=== PATIENT | male | born 1995 | race African-American/Black ===

== ENCOUNTER → 2022-10-30 | Emergency (ER) | payer MEDICAID ==
[~2022-10-30] VITALS: Ht 172.7 cm; Wt 109.0 kg
[2022-10-30 04:24] LABS: Basophils # (auto) 0.1 10 ^3/uL (0-0.2); Basophils % (auto) 0.6 % (0.0-2.0); Eosinophils # (auto) 0.1 10 ^3/uL (0-0.8); Eosinophils % (auto) 0.9 % (0.0-7.0); Hematocrit 46.4 % (41.0-53.0); Hemoglobin 15.4 g/dL (13.5-17.5); Lymphocytes # (auto) 4.7 10 ^3/uL (0.4-5.4); Mean Corpuscular Hemoglobin 28.6 pg (28.0-32.0); Mean Corpuscular Hgb Conc. 33.2 g/dL (32.0-36.0); Monocytes % (auto) 7.3 % (0.0-12.0); Neutrophils # (auto) 7.5 10 ^3/uL (1.6-8.6); Neutrophils % (auto) 56.2 % (37.0-80.0); Nucleated Red Blood Cells % 0.1 %; Red Cell Distribution Width 13.7 % (11.8-14.3); White Blood Cell 13.4 10^3/uL (4.4-10.8)
[2022-10-30 04:30] VITALS: BP 134/85
[2022-10-30 04:45] LABS: Acetaminophen < 2.0 ug/mL (10-30)
[2022-10-30 04:47] LABS: Albumin 4.1 g/dL (3.4-5.0); Anion Gap 7 (5-15); Blood Alcohol < 3.0 mg/dL (0-5); Blood Urea Nitrogen 10 mg/dL (7-18); Carbon Dioxide 25 mmol/L (21-32); Chloride 108 mmol/L (98-107); Glucose 113 mg/dL (74-106); Sodium 140 mmol/L (136-145)
[2022-10-30 04:49] LABS: Alanine Aminotransferase 40 U/L (16-61); Aspartate Aminotransferase 27 U/L (15-37); BUN/Creatinine Ratio 8.1; Calcium 9.4 mg/dL (8.5-10.1); GFR African American 89 mL/min; GFR Non-African American 74 mL/min
[2022-10-30 04:51] LABS: Alkaline Phosphatase 38 U/L (45-117); Bilirubin, Total 0.3 mg/dL (0.2-1.0); Total Protein 7.9 g/dL (6.4-8.2)
== END | disposition home or self-care (01) ==
LOC: ER 02:26
DX: F20.9 Schizophrenia, unspecified (principal)
CPT/HCPCS: 36415; 71045; 80053; 80320; 80329; 85025

== ENCOUNTER 2024-06-11 21:42 | Emergency (ER) | payer MEDICAID ==
[~2024-06-11] VITALS: Ht 172.7 cm; Wt 118.9 kg
[2024-06-11 21:46] VITALS: BP 148/102; PULSE 99; RESP 18; TEMP 99.1; O2SAT 97
[2024-06-12] MEDS: HYDROcodone-ACET 5/325MG TAB PO ONE (00:38)
[2024-06-12] MEDS ORDERED: IBUP-1455 PO (01:46)
[2024-06-12] MEDS ORDERED: METH-1181 PO (01:46)
== END 2024-06-12 03:15 | disposition home or self-care (01) ==
LOC: ER 21:42
DX: S13.9XXA Sprain of joints and ligaments of unspecified parts of neck, initial encounter (principal); V43.62XA Car passenger injured in collision with other type car in traffic accident, initial encounter; Y93.89 Activity, other specified; Y92.488 Other paved roadways as the place of occurrence of the external cause; Y99.8 Other external cause status
CPT/HCPCS: 72040